=== PATIENT | male | born 1980 | race African-American/Black ===

== ENCOUNTER 2017-06-05 18:35 | Emergency (ER) | payer SELFPAY ==
[2017-06-05] MEDS ORDERED: Ketorolac Tromethamine 30 MG/ML VIAL ONE (20:57)
[2017-06-05] MEDS ORDERED: predniSONE 20 MG TAB ONE (20:57)
== END 2017-06-05 21:29 | disposition home or self-care (01) ==
LOC: ERS 18:35
DX: M54.42 Lumbago with sciatica, left side (principal); J45.909 Unspecified asthma, uncomplicated; F17.210 Nicotine dependence, cigarettes, uncomplicated
CPT/HCPCS: 96372; J1885; J7506

== ENCOUNTER 2018-10-08 13:18 | Emergency (ER) | payer SELFPAY ==
--- NOTE | 2018-10-08 13:43 | RAD ---
TWO VIEWS RIGHT FOREARM: History: Right forearm pain for two weeks. FINDINGS: Two views of the right forearm shows no evidence of acute fracture or dislocation. There may be a wou nd along the volar aspect of the forearm. Surrounding soft tissue swelling is seen. No degenerative c hanges are present. IMPRESSION: No evidence of acute osseous abnormality. POS: [facility]
[2018-10-08 14:42] LABS: Hemoglobin 15.1 g/dL (14.0-18.0); Mean Corpuscular HGB CONC 32.9 g/dL (32.0-36.0); Mean Corpuscular Hemoglobin 35.6 pg (27.0-31.0); Mean Platelet Volume 8.2 fL (7.4-10.4); Platelet Count 193 thou/uL (130-400); Red Blood Cell (RBC) Count 4.25 mill/uL (4.70-6.10); White Blood Cell (WBC) Count 5.9 thou/uL (4.8-10.8)
[2018-10-08 15:03] LABS: #Basophils 0.1 thou/uL (0.0-0.2); #Eosinphils 0.1 thou/uL (0.0-0.7); #Lymphocytes 1.9 thou/uL (1.20-3.40); #Monocytes 0.8 thou/uL (0.11-0.59); %Eosinophils 1.7 % (0.0-10.0); %Lymphocytes 32.3 % (21.0-51.0); %Monocytes 13.2 % (0.0-10.0); %Neutrophils 50.9 % (42.0-75.0); MDiff Complete? YES; Macrocytosis SLIGHT = 6-15 cells (100X) (0-5/hpf); Platelet Morphology Comment Appears Adequate
[2018-10-08 15:04] LABS: CRP (Inflammatory) Less than 0.50 mg/dL (= or < 0.5); Uric Acid 5.6 mg/dL (3.5-7.2)
[2018-10-08] MEDS ORDERED: Naproxen 500 MG TAB ONE (15:47)
--- NOTE | 2018-10-08 16:11 | RAD ---
XR Wrist 3 Rt View STANDARD: 10/08/2018 3:40 PM CLINICAL INDICATION: Right arm pain while working for 2 weeks COMPARISON: None. TECHNIQUE: 3 views. Laterality: Right wrist. FINDINGS: Bones: No acute fracture or subluxation is demonstrated. There is healed fracture deformity involvin g the base of the fourth metacarpal. Joints: Joint alignment is within normal limits.. Soft Tissue: Normal. IMPRESSION: No acute osseous abnormality..
== END 2018-10-08 16:23 | disposition home or self-care (01) ==
LOC: ERS 13:18
DX: M79.89 Other specified soft tissue disorders (principal); J45.909 Unspecified asthma, uncomplicated; F17.210 Nicotine dependence, cigarettes, uncomplicated
CPT/HCPCS: 36415; 84550; 85025; 85652; 86140